=== PATIENT | male | born 1940 | race Caucasian/White ===

== ENCOUNTER 2016-12-23 10:06 | Day surgery (SDC) | payer MEDICARE ==
[~2016-12-23 10:06] MED LIST: LACTATED RINGERS 1,000 ML IV SCH
[2016-12-23] MEDS ORDERED: LACTATED RINGERS 1,000 ML ONE (10:35)
[2016-12-23] MEDS ORDERED: IV START KIT ONE (10:35)
[2016-12-23] MEDS ORDERED: FENTANYL 250 MCG/5 ML AMP ONE (10:37)
[2016-12-23] MEDS ORDERED: PROPOFOL 20 ML IV ONE (11:24)
== END 2016-12-23 13:30 | disposition home or self-care (01) ==
LOC: SDC 10:06
PROVIDERS: ATTEND Internal Medicine Gastroenterology
DX: K59.8 Other specified functional intestinal disorders (principal); R10.2 Pelvic and perineal pain; E11.9 Type 2 diabetes mellitus without complications; E79.0 Hyperuricemia without signs of inflammatory arthritis and tophaceous disease; E78.5 Hyperlipidemia, unspecified; E03.9 Hypothyroidism, unspecified; G47.33 Obstructive sleep apnea (adult) (pediatric)
CPT/HCPCS: J3010; J7120; G0121